=== PATIENT | male | born 1970 | race Caucasian/White ===

== ENCOUNTER → 2020-09-15 | Day surgery (SDC) | payer OTHER ==
[~2020-09-15] MED LIST: ASCORBIC ACID500 MG PO; COQ-10100 MG PO; CRESTOR10 M1 PO; GARLIC1 EAC1 PO; HCTZ25 MG PO; LOVAZA1 GM PO; NIACIN500 M1 PO; PERCOCET 5-3251 EACH PO; SYNTHROID100 MCG PO; VITAMIN D3 PO; ZINC50 M2 PO
[2020-09-15 10:20] LABS: HCT 42.8 % (42.0-52.0); HGB 14.4 g/dl (13.2-18.0); MCH 28.3 pg (25.0-31.0); MCHC 33.6 g/dL (32.0-36.0); MCV 84.3 fL (78.0-100.0); MPV 10.8 fL (6.0-9.5); RBC 5.08 M/uL (4.70-6.00); RDW 13.4 % (11.5-14.0); WBC 7.2 K/uL (4.0-10.5)
[2020-09-15 10:37] LABS: ALBUMIN 3.9 g/dL (3.4-5.0); BILIRUBIN - TOTAL 0.6 mg/dL (0.2-1.0); BUN/CREAT RATIO (CALC) 15.9 RATIO; CREATININE 0.88 mg/dL (0.67-1.17); GLOBULIN (CALCULATION) 3.4 g/dL; POTASSIUM 3.8 mmol/L (3.5-5.1); TOTAL PROTEIN 7.3 g/dL (6.4-8.2)
== END | disposition home or self-care (01) ==
LOC: FAS 09:34
PROVIDERS: Orthopaedic Surgery
DX: S83.231A Complex tear of medial meniscus, current injury, right knee, initial encounter (principal); M25.861 Other specified joint disorders, right knee; M17.11 Unilateral primary osteoarthritis, right knee; E78.00 Pure hypercholesterolemia, unspecified; E03.9 Hypothyroidism, unspecified; I10 Essential (primary) hypertension; X58.XXXA Exposure to other specified factors, initial encounter; Z20.822 Contact with and (suspected) exposure to COVID-19
CPT/HCPCS: 36415; 71045; 80053; J1100; J1170; J1885; J2250; J2405; J2704; J3010; J7120